=== PATIENT | male | born 1930 | race Caucasian/White ===

== ENCOUNTER 2017-11-01 22:41 | Inpatient (IN) ==
[2017-11-01] MEDS ORDERED: methylPREDNISolone SOD SUC 125 MG/2 ML VIAL ONE (22:45)
[2017-11-01] MEDS ORDERED: FUROSEMIDE 40 MG/4 ML VIAL ONE (22:45)
[2017-11-01] MEDS ORDERED: TERBUTALINE 1 MG/1 ML VIAL SUBCUT ONE (22:45)
[2017-11-01] MEDS ORDERED: FUROSEMIDE 100 MG/10 ML VIAL IV STA (22:46)
[2017-11-01] MEDS ORDERED: LEVOFLOXACIN INJ 750 MG in PREMIX 1 EACH IV STA (22:46)
[2017-11-01] MEDS ORDERED: methylPREDNISolone SOD SUC 125 MG/2 ML VIAL IV STA (22:46)
[2017-11-01] MEDS ORDERED: LEVOFLOXACIN INJ 150 ML IV ONE (22:59)
[2017-11-01] MEDS ORDERED: ALBUTEROL 2.5 MG/3 ML NEB RESP TX SCH (23:00)
[2017-11-01] MEDS ORDERED: ALBUTEROL 2.5 MG/3 ML NEB RESP TX ONE (23:10)
[2017-11-01 23:14] LABS: Basophils % 0.1 % (0.0-0.8); Eosinophils # 0.1 10*3/uL (0.0-0.87); Eosinophils % 0.6 % (0.00-10.9); Hematocrit 31.2 VOL% (42.0-52.0); Hemoglobin 9.7 GM/DL (14.0-18.0); Lymphocytes # 5.5 10*3/uL (1.4-4.0); Lymphocytes % 54.6 % (21.2-54.2); Mean Corpuscular HGB Conc 31.1 GM/DL (32-36); Mean Corpuscular Hemoglobin 35 PG (27-34); Mean Platelet Volume 10.4 FL (9.6-12.0); Monocytes # 0.7 10*3/uL (0.11-0.8); Monocytes % 6.6 % (1.7-12.7); NRBC # 0.03 10*3/uL; Neutrophils # 3.7 10*3/uL (1.4-7.4); Neutrophils % 37.1 % (38.7-73.9); Platelet Count 242 T/CUMM (130-400); Red Blood Count 2.81 MC/CUMM (3.8-5.5); Red Cell Distribution Width 17.5 % (9.3-17.3); White Blood Count 10.1 T/CUMM (4-12)
[2017-11-01 23:28] LABS: INR 1.1; PT Patient Result 11.4 SECS; Partial Thromboplastin Time 26.8 SECS (0-40)
[2017-11-01] MEDS ORDERED: PROPOFOL 1,000 MG/100 ML BOTTLE IV ONE (23:34)
[2017-11-01 23:55] LABS: Alanine Aminotransferase 20 U/L (16-61); Alkaline Phosphatase 65 U/L (45-117); Aspartate Amino Transferase 15 U/L (0-37); Blood Urea Nitrogen 19 MG/DL (7-18); Glucose 346 MG/DL (74-106); Osmolality,Calculated 283.2 MOS/KG (273-304); Potassium 4.8 MMOL/L (3.5-5.1); Sodium 134 MMOL/L (136-145)
[2017-11-01 23:58] LABS: Troponin I Only 0.073 NG/ML (0.00-0.045)
[2017-11-02] MEDS: TERBUTALINE 1 MG/1 ML VIAL SUBCUT SCH ×4 (00:18→04:35)
[2017-11-02 00:27] LABS: Apearance,Urine CLOUDY (Clear); Bacteria,Urine Many /HPF (Few); Bilirubin,Urine Negative (Negative); Blood, Urine Small mg/dL (Negative); Glucose,Urine (UA) Negative (Negative); Ketones,Urine Negative (Negative); Nitrite,Urine Negative (Negative); Protein,Urine 100 MG/DL; RBC,Urine 63 /HPF (0-4); Urine Color Yellow (Yellow); Urine Specific Gravity 1.014 (1.001-1.035); Urine Urobilinogen < 2.0 EU/DL (0.2-1.0); WBC,Urine 1287 /HPF (0-6)
[2017-11-02] MEDS ORDERED: ONDANSETRON 4 MG/2 ML VIAL IV PRN (00:27)
[2017-11-02] MEDS ORDERED: VECURONIUM 10 MG VIAL IV ONE (00:28)
[2017-11-02] MEDS ORDERED: ETOMIDATE 20 MG/10 ML VIAL IV ONE (00:28)
[2017-11-02 00:31] LABS: ABG HCO3 14.7 MMOL/L (20-26); ABG Oxygen Saturation 81.2 % (95-100); ABG PCO2 61.3 MM HG (35-48); ABG PO2 64.7 MM HG (80-95); ABG TCO2 17.8 MMOL/L (23-27)
[2017-11-02] MEDS ORDERED: GLUCAGON 1 MG VIAL IM PRN (00:35)
[2017-11-02 00:37] LABS: ABG PH 7.085 (7.35-7.45)
[2017-11-02 02:28] LABS: Band Neutrophils 5 % (0-10); Lymphocytes 57 % (20-55); Platelet Estimate Normal; Segmented Neutrophils 36 % (50-85); Total Cells Counted 100
[2017-11-02] MEDS ORDERED: NOREPINEPHRINE 4 MG/4 ML VIAL IV ONE ×2 (02:43→09:45)
[2017-11-02] MEDS ORDERED: SODIUM CHLORIDE 0.9% 250 ML IV ONE (02:46)
[2017-11-02] MEDS: NOREPINEPHRINE 8 MG in SODIUM CHLORIDE 0.9% 242 ML IV SCH ×3 (02:50→11:35)
[2017-11-02] MEDS ORDERED: AMIODARONE 450 MG/9 ML VIAL IV ONE (03:02)
[2017-11-02] MEDS ORDERED: PHENYLEPHRINE DRIP 40 MG/250 ML PREMIX IV ONE (03:03)
[2017-11-02] MEDS ORDERED: SODIUM BICARBONATE 50 MEQ/50 ML SYRINGE IV ONE ×2 (03:05→03:16)
[2017-11-02 03:10] LABS: ABG Base Excess -11.3 MMOL/L (-2.5-2.5); ABG HCO3 15.5 MMOL/L (20-26); ABG Oxygen Saturation 96.8 % (95-100); ABG PCO2 57.3 MM HG (35-48); ABG TCO2 17.6 MMOL/L (23-27)
[2017-11-02] MEDS ORDERED: AMIODARONE INJ 150 MG in DEXTROSE 5% 100 ML IV ONE (03:10)
[2017-11-02 03:18] LABS: ABG PH 7.118 (7.35-7.45)
[2017-11-02] MEDS ORDERED: SODIUM BICARB INJ 50 MEQ in SODIUM CHLORIDE 0.45% 1,000 ML IV SCH (03:30)
[2017-11-02] MEDS: DOPamine 800 MG/250 ML PREMIX IV SCH ×6 (03:30→19:01)
[2017-11-02] MEDS: PHENYLEPHRINE DRIP 40 MG/250 ML PREMIX IV SCH ×4 (03:39→15:45)
[2017-11-02] MEDS ORDERED: AMIODARONE INJ 450 MG in DEXTROSE 5% 241 ML IV SCH (03:40)
[2017-11-02] MEDS: MIDAZOLAM 100 MG in SODIUM CHLORIDE 0.9% 80 ML IV SCH (04:31)
[2017-11-02] MEDS: VANCOMYCIN INJ 1,000 MG in SODIUM CHLORIDE 0.9% 250 ML IV ONE ×2 (04:33→05:14)
[2017-11-02] MEDS: PIPERACILLIN/TAZOBACTAM 3,375 MG in SODIUM CHLORIDE 0.9% 100 ML IV SCH ×5 (04:33→21:54)
[2017-11-02] MEDS: ALBUTEROL/IPRATROPIUM 3 ML NEB RESP TX SCH ×5 (04:35→19:35)
[2017-11-02 06:32] LABS: ABG Base Excess -14.8 MMOL/L (-2.5-2.5); ABG HCO3 12.9 MMOL/L (20-26); ABG Oxygen Saturation 90.5 % (95-100); ABG PCO2 58.4 MM HG (35-48); ABG PO2 82.6 MM HG (80-95); ABG TCO2 15.6 MMOL/L (23-27); Allen Test Positive; Pt O2 Delivery Device Ventilator
[2017-11-02 06:35] LABS: ABG PH 7.042 (7.35-7.45)
[2017-11-02 06:36] LABS: Basophils % 0.1 % (0.0-0.8); Eosinophils % 0.1 % (0.00-10.9); Hematocrit 31.1 VOL% (42.0-52.0); Immature Granulocytes % 3.1 %; Immature Granulocytes Absolute 0.42 #; Lymphocytes # 3.5 10*3/uL (1.4-4.0); Lymphocytes % 25.3 % (21.2-54.2); Mean Corpuscular HGB Conc 28.9 GM/DL (32-36); Mean Corpuscular Hemoglobin 36 PG (27-34); Mean Corpuscular Volume 122.9 FL (87-102); Mean Platelet Volume 11.1 FL (9.6-12.0); Monocytes # 0.9 10*3/uL (0.11-0.8); Monocytes % 6.6 % (1.7-12.7); NRBC # 0.09 10*3/uL; Neutrophils # 8.9 10*3/uL (1.4-7.4); Neutrophils % 64.8 % (38.7-73.9); Platelet Count 226 T/CUMM (130-400); Red Blood Count 2.53 MC/CUMM (3.8-5.5); Red Cell Distribution Width 17.5 % (9.3-17.3); White Blood Count 13.7 T/CUMM (4-12)
[2017-11-02 07:15] LABS: Alanine Aminotransferase 1502 U/L (16-61); Albumin 2.8 G/DL (3.4-5.0); Alkaline Phosphatase 81 U/L (45-117); Aspartate Amino Transferase 1784 U/L (0-37); Blood Urea Nitrogen 28 MG/DL (7-18); Calcium 7.9 MG/DL (8.5-10.1); Cholesterol 79 MG/DL (50-200); Glucose 327 MG/DL (74-106); HDL Cholesterol 22 MG/DL (40-60); Risk Ratio 3.59; Sodium 136 MMOL/L (136-145); Total Protein 5.5 G/DL (6.4-8.3); Triglycerides 140 MG/DL (2-150)
[2017-11-02] MEDS ORDERED: INSULIN REGULAR 100 UNIT/ML SUBCUT SCH (07:30)
[2017-11-02 07:32] LABS: Potassium > 8.0 MMOL/L (3.5-5.1)
[2017-11-02 07:36] LABS: ABG Base Excess -16.6 MMOL/L (-2.5-2.5); ABG HCO3 11.7 MMOL/L (20-26); ABG Oxygen Saturation 92.4 % (95-100); ABG PCO2 51.4 MM HG (35-48); ABG PO2 86.5 MM HG (80-95); ABG TCO2 13.6 MMOL/L (23-27)
[2017-11-02 07:43] LABS: ABG PH 7.036 (7.35-7.45)
[2017-11-02] MEDS ORDERED: INSULIN REGULAR 100 UNIT/ML IV ONE (07:46)
[2017-11-02] MEDS ORDERED: SODIUM POLYSTYRENE SULFATE 15 GM/60 ML BOTTLE PO ONE (07:48)
[2017-11-02 07:50] LABS: Macrocytosis 1+; Polychromasia Slight; Target Cells Slight
[2017-11-02] MEDS ORDERED: CALCIUM GLUCONATE 1,000 MG in SODIUM CHLORIDE 0.9% 100 ML IV ONE ×2 (07:51→12:00)
[2017-11-02] MEDS ORDERED: CALCIUM GLUCONATE 1,000 MG/10 ML VIAL IV ONE (07:51)
[2017-11-02] MEDS: ENOXAPARIN 40 MG/0.4 ML SYRINGE SUBCUT SCH ×2 (08:07→12:33)
[2017-11-02] MEDS: INSULIN REGULAR 100 UNIT/ML SUBCUT SCH ×4 (08:08→21:14)
[2017-11-02] MEDS ORDERED: ALBUMIN 25% 25 GM in PREMIX 1 EACH IV STA (08:54)
[2017-11-02] MEDS ORDERED: LOSARTAN 25 MG TABLET PO SCH (09:00)
[2017-11-02] MEDS ORDERED: amLODIPine 10 MG TABLET PO SCH (09:00)
[2017-11-02] MEDS ORDERED: FUROSEMIDE 40 MG/4 ML VIAL IV ONE (10:27)
[2017-11-02] MEDS: CLOPIDOGREL 75 MG TABLET PO SCH (10:30)
[2017-11-02] MEDS: ASPIRIN EC 81 MG TABLET PO SCH (10:30)
[2017-11-02] MEDS: LOSARTAN 25 MG TABLET PO SCH (10:30)
[2017-11-02] MEDS: FUROSEMIDE 40 MG/4 ML VIAL IV SCH ×2 (10:30→16:50)
[2017-11-02] MEDS ORDERED: ALBUMIN 25% 25 GM in PREMIX 1 EACH IV ONE (10:37)
[2017-11-02] MEDS: CARVEDILOL 25 MG TABLET PO SCH ×2 (11:34→21:10)
[2017-11-02] MEDS: ISOSORBIDE MONONITRATE 60 MG TABLET PO SCH ×2 (11:34→21:11)
[2017-11-02 12:31] LABS: Hepatitis A Ab IgM Quant 0.16 Index; Hepatitis A Ab IgM Result Negative (Negative); Hepatitis B Core IgM Result Negative (Negative); Hepatitis B Surface Ag Quant 0.22 Index; Hepatitis B Surface Ag Result Negative (Negative); Hepatitis C Virus Ab Quant 0.15 Index; Hepatitis C Virus Ab Result Negative (Negative)
[2017-11-02] MEDS: SODIUM BICARB INJ 150 MEQ in STERILE WATER INJ 1,000 ML IV SCH ×3 (12:35→22:02)
[2017-11-02] MEDS: NOREPINEPHRINE 16 MG in SODIUM CHLORIDE 0.9% 234 ML IV SCH ×2 (13:15→22:26)
[2017-11-02] MEDS: PHENYLEPHRINE INJ 160 MG in SODIUM CHLORIDE 0.9% 234 ML IV SCH ×2 (15:20→19:15)
[2017-11-02] MEDS ORDERED: HEPARIN 10,000 UNIT/10 ML VIAL IV PRN (15:57)
[2017-11-02] MEDS ORDERED: LEVOFLOXACIN INJ 750 MG in PREMIX 1 EACH IV SCH (22:00)
[2017-11-03] MEDS: ALBUTEROL/IPRATROPIUM 3 ML NEB RESP TX SCH ×6 (00:29→20:29)
[2017-11-03] MEDS: INSULIN REGULAR 100 UNIT/ML SUBCUT SCH ×4 (00:43→18:36)
[2017-11-03] MEDS: SODIUM BICARB INJ 150 MEQ in STERILE WATER INJ 1,000 ML IV SCH ×3 (01:23→08:32)
[2017-11-03] MEDS: DOPamine 800 MG/250 ML PREMIX IV SCH (03:25)
[2017-11-03] MEDS ORDERED: PROPOFOL 1,000 MG/100 ML BOTTLE IV SCH (03:30)
[2017-11-03] MEDS: MIDAZOLAM 100 MG in SODIUM CHLORIDE 0.9% 80 ML IV SCH ×2 (05:09→06:35)
[2017-11-03] MEDS: ENOXAPARIN 40 MG/0.4 ML SYRINGE SUBCUT SCH (06:34)
[2017-11-03] MEDS: PIPERACILLIN/TAZOBACTAM 3,375 MG in SODIUM CHLORIDE 0.9% 100 ML IV SCH ×3 (06:34→22:32)
[2017-11-03 06:39] LABS: Calcium 6.4 MG/DL (8.5-10.1); Magnesium 1.9 MG/DL (1.8-2.4); Osmolality,Calculated 281.2 MOS/KG (273-304)
[2017-11-03 06:43] LABS: Potassium 6.2 MMOL/L (3.5-5.1)
[2017-11-03] MEDS: NOREPINEPHRINE 16 MG in SODIUM CHLORIDE 0.9% 234 ML IV SCH ×3 (07:20→21:40)
[2017-11-03 07:35] LABS: ABG Base Excess -5.6 MMOL/L (-2.5-2.5); ABG HCO3 19.8 MMOL/L (20-26); ABG PCO2 40.6 MM HG (35-48); ABG PH 7.307 (7.35-7.45); ABG TCO2 19.5 MMOL/L (23-27)
[2017-11-03] MEDS: ISOSORBIDE MONONITRATE 60 MG TABLET PO SCH ×2 (08:35→21:09)
[2017-11-03] MEDS: FUROSEMIDE 40 MG/4 ML VIAL IV SCH (08:35)
[2017-11-03] MEDS: CARVEDILOL 25 MG TABLET PO SCH ×2 (08:35→21:08)
[2017-11-03] MEDS: ASPIRIN EC 81 MG TABLET PO SCH (08:35)
[2017-11-03] MEDS: LOSARTAN 25 MG TABLET PO SCH (08:35)
[2017-11-03] MEDS: CLOPIDOGREL 75 MG TABLET PO SCH (08:35)
[2017-11-03] MEDS ORDERED: ALBUMIN 25% 50 GM in PREMIX 1 EACH IV ONE (09:21)
[2017-11-03] MEDS ORDERED: HEPARIN 10,000 UNIT/10 ML VIAL IV PRN (10:01)
[2017-11-03] MEDS: PHENYLEPHRINE INJ 160 MG in SODIUM CHLORIDE 0.9% 234 ML IV SCH ×2 (15:29→20:24)
[2017-11-03] MEDS: DEXTROSE 50% 25 GM/50 ML VIAL IV PRN ×3 (18:36→23:05)
[2017-11-03] MEDS ORDERED: SODIUM BICARB INJ 150 MEQ in STERILE WATER INJ 850 ML IV SCH (19:30)
[2017-11-03] MEDS ORDERED: SODIUM CHLORIDE 0.9% 250 ML IV ONE (19:30)
[2017-11-03] MEDS ORDERED: CALCIUM GLUCONATE 2,000 MG in SODIUM CHLORIDE 0.9% 100 ML IV ONE ×2 (19:30→22:00)
[2017-11-03] MEDS ORDERED: DOPamine 800 MG/250 ML PREMIX IV SCH (20:15)
[2017-11-03 20:18] LABS: ABG Base Excess -13.9 MMOL/L (-2.5-2.5); ABG HCO3 12.8 MMOL/L (20-26); ABG Oxygen Saturation 97.9 % (95-100); ABG PCO2 32.9 MM HG (35-48); ABG PO2 158.6 MM HG (80-95); ABG TCO2 13.8 MMOL/L (23-27)
[2017-11-03 20:20] LABS: ABG PH 7.207 (7.35-7.45)
[2017-11-03] MEDS ORDERED: SODIUM BICARBONATE 50 MEQ/50 ML SYRINGE IV ONE ×3 (20:29→20:35)
[2017-11-03] MEDS ORDERED: SODIUM CHLORIDE 0.9% 500 ML IV ONE (20:45)
[2017-11-03] MEDS ORDERED: DOBUTamine 500 MG/250 ML PREMIX IV SCH (21:00)
[2017-11-03 21:25] LABS: Albumin 2.9 G/DL (3.4-5.0); CKMB % 1.1 %; Calcium 6.3 MG/DL (8.5-10.1); Potassium 5.5 MMOL/L (3.5-5.1); Total Protein 4.3 G/DL (6.4-8.3); Troponin I Only 76.4 NG/ML (0.00-0.045)
[2017-11-04 00:38] VITALS: BP 64/30
[2017-11-04] MEDS ORDERED: ENOXAPARIN 30 MG/0.3 ML SYRINGE SUBCUT SCH (06:00)
[2017-11-04] MEDS ORDERED: LEVOFLOXACIN INJ 750 MG in PREMIX 1 EACH IV SCH (21:00)
== END 2017-11-03 23:22 | disposition expired | DRG 208 ==
LOC: EDUNIT# → N.ED 22:41 → SUATTDRO 11-02 00:27 → N.EDINP 11-02 00:27 → N.ICU 11-02 01:12
PROVIDERS: ATTEND Internal Medicine Nephrology